=== PATIENT | male | born 2000 | race Caucasian/White ===

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

== ENCOUNTER 2020-12-16 19:48 | Emergency (ER) | payer OTHER ==
[2020-12-16 19:57] VITALS: BP 147/91; PULSE 89; TEMP 98.6; BMI 28.7
== END 2020-12-16 22:02 | disposition home or self-care (01) ==
LOC: JER 19:48
DX: T18.5XXA Foreign body in anus and rectum, initial encounter (principal)
CPT/HCPCS: 74019-TC-FY; 99284-25